=== PATIENT | male | born 2000 | race Caucasian/White ===

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

== ENCOUNTER → 2019-03-20 | Outpatient (CLI) | payer OTHER ==
[2019-03-20 20:38] LABS: BASO # 0.1 10^3/uL (0.0-0.2); BASO % 1.8 % (0.0-1.0); EOS # 0.1 10^3/uL (0.0-0.5); EOS % 2.9 % (0.0-3.0); HEMATOCRIT 35.4 % (42.0-52.0); HEMOGLOBIN 10.8 g/dl (13.5-17.5); LYMPH # 1.8 10^3/uL (1.5-5.0); LYMPH % 39.5 % (24.0-44.0); MEAN CORPUSCULAR HEMOGLOBIN 25.5 pg (27.0-33.0); MEAN CORPUSCULAR HGB CONC 30.5 g/dl (32.0-36.5); MEAN CORPUSCULAR VOLUME 83.7 fl (80.0-96.0); MONO # 0.4 10^3/uL (0.0-0.8); MONO % 8.4 % (0.0-5.0); NEUTROPHILS # 2.1 10^3/uL (1.5-8.5); NEUTROPHILS % 47.2 % (36.0-66.0); PLATELET COUNT, AUTOMATED 257 10^3/uL (150-450); RED BLOOD COUNT 4.23 10^6/uL (4.30-6.10); WHITE BLOOD COUNT 4.5 10^3/uL (4.0-10.0)
[2019-03-20 20:45] LABS: ALBUMIN 4.4 GM/DL (3.2-5.2); ALT/SGPT 22 U/L (12-78); BILIRUBIN,DIRECT 0.3 MG/DL (0.0-0.2); BILIRUBIN,TOTAL 1.3 MG/DL (0.2-1.0); C REACTIVE PROTEIN QUANTITATIV < 0.30 MG/DL (0.00-0.30); TOTAL PROTEIN 8.1 GM/DL (6.4-8.2)
[2019-03-20 21:04] LABS: ERYTHROCYTE SEDIMENTATION RATE 22 mm/hr (0-15)
[2019-03-28 00:07] LABS: ADALIMUMAB LEVEL 4.8 ug/mL (.); ANTI-ADALIMUMAB ABY <25 ng/mL (.)
== END ==
LOC: M LRY 14:51
PROVIDERS: ATTEND Internal Medicine Gastroenterology
DX: K50.90 Crohn's disease, unspecified, without complications (principal)

== ENCOUNTER → 2019-05-10 | Outpatient (CLI) | payer OTHER ==
[~2019-05-10] MED LIST changes: +OMEP-172 PO; -OMEP20CA4 PO
[2019-05-10 15:17] LABS: BASO # 0.1 10^3/uL (0.0-0.2); BASO % 1.4 % (0.0-1.0); EOS # 0.1 10^3/uL (0.0-0.5); EOS % 2.2 % (0.0-3.0); HEMATOCRIT 38.2 % (42.0-52.0); HEMOGLOBIN 11.5 g/dl (13.5-17.5); LYMPH # 2.1 10^3/uL (1.5-5.0); LYMPH % 42.6 % (24.0-44.0); MEAN CORPUSCULAR HEMOGLOBIN 25.2 pg (27.0-33.0); MEAN CORPUSCULAR HGB CONC 30.1 g/dl (32.0-36.5); MEAN CORPUSCULAR VOLUME 83.6 fl (80.0-96.0); MONO # 0.5 10^3/uL (0.0-0.8); MONO % 10.1 % (0.0-5.0); NEUTROPHILS # 2.2 10^3/uL (1.5-8.5); NEUTROPHILS % 43.5 % (36.0-66.0); PLATELET COUNT, AUTOMATED 237 10^3/uL (150-450); RED BLOOD COUNT 4.57 10^6/uL (4.30-6.10)
[2019-05-10 15:40] LABS: ERYTHROCYTE SEDIMENTATION RATE 11 mm/hr (0-15)
[2019-05-10 19:10] LABS: ALT/SGPT 24 U/L (12-78); BLOOD UREA NITROGEN 16 MG/DL (7-18); CREATININE FOR GFR 1.02 MG/DL (0.70-1.30)
[2019-05-10 19:11] LABS: ALBUMIN 4.6 GM/DL (3.2-5.2); BILIRUBIN,DIRECT 0.3 MG/DL (0.0-0.2); BILIRUBIN,TOTAL 1.5 MG/DL (0.2-1.0); C REACTIVE PROTEIN QUANTITATIV < 0.30 MG/DL (0.00-0.30); IRON (FE) 29 UG/DL (65-175); PERCENT SATURATION 6.7 % (19.7-50.0); TOTAL IRON BINDING CAPACITY 432 UG/DL (250-450); TOTAL PROTEIN 8.1 GM/DL (6.4-8.2)
[2019-05-10 23:59] LABS: VITAMIN B12 LEVEL 636 PG/ML
== END ==
LOC: M LAB 14:26
PROVIDERS: ATTEND Internal Medicine Gastroenterology
DX: K50.90 Crohn's disease, unspecified, without complications (principal)

== ENCOUNTER → 2019-07-21 | Outpatient (CLI) | payer OTHER ==
[~2019-07-21] MED LIST changes: -MONT10TA2 PO; +MONT10TA4 PO; -OMEP-172 PO; +OMEP1CAP73 PO; +ONDA-83 PO; -ONDA4TAB5 PO
[2019-07-21 08:54] LABS: BASO # 0.1 10^3/uL (0.0-0.2); BASO % 1.2 % (0.0-1.0); EOS # 0.1 10^3/uL (0.0-0.5); EOS % 1.6 % (0.0-3.0); HEMATOCRIT 38.6 % (42.0-52.0); HEMOGLOBIN 12.2 g/dl (13.5-17.5); LYMPH # 2.8 10^3/uL (1.5-5.0); LYMPH % 56.1 % (24.0-44.0); MEAN CORPUSCULAR HEMOGLOBIN 26.8 pg (27.0-33.0); MEAN CORPUSCULAR HGB CONC 31.6 g/dl (32.0-36.5); MEAN CORPUSCULAR VOLUME 84.8 fl (80.0-96.0); MONO # 0.4 10^3/uL (0.0-0.8); MONO % 8.6 % (0.0-5.0); NEUTROPHILS # 1.6 10^3/uL (1.5-8.5); NEUTROPHILS % 32.3 % (36.0-66.0); PLATELET COUNT, AUTOMATED 201 10^3/uL (150-450); RED BLOOD COUNT 4.55 10^6/uL (4.30-6.10)
--- NOTE | 2019-07-21 09:52 | REP ---
Clinical: Epigastric pain. Technique: Real time najera scale and color Doppler ultrasound examination using curved array transducer. Findings: Liver, spleen, and pancreas are normal in contour, size, echogenicity without focal hepatic, splenic, or pancreatic lesion identified. The gallbladder is normal and without gallstones, wall thickening, or pericholecystic fluid. No biliary ductal dilatation is appreciated and the common bile duct measures 3.6 mm diameter. The bilateral kidneys are normal in reniform shape without hydronephrosis. The right kidney appears somewhat malrotated and measures 11.0 x 3.9 x 3.2 cm. The left kidney measures 12.1 x 5.3 x 4.7 cm. Abdominally aorta appears normal. No ascites. Color Doppler interrogation demonstrates normal velocities, wave forms, and flow direction of the portal veins, hepatic veins, splenic vein, and hepatic artery. Main hepatic vein: 18.7 cm/sec Hepatic veins: 14.9 - 19.9 cm/sec Splenic vein: 31.1 cm/sec Hepatic artery: 50.6 cm/sec PSV Impression: Normal complete abdominal ultrasound. The Electronically Signed by Kristian Jensen MD 07/21/2019 09:44 A
[2019-07-21 11:04] LABS: ALBUMIN 4.8 GM/DL (3.2-5.2); ALT/SGPT 22 U/L (12-78); BILIRUBIN,DIRECT 0.3 MG/DL (0.0-0.2); BLOOD UREA NITROGEN 12 MG/DL (7-18); CALCIUM LEVEL 9.8 MG/DL (8.5-10.1); CARBON DIOXIDE LEVEL 26 MEQ/L (21-32); CHLORIDE LEVEL 108 MEQ/L (98-107); CREATININE FOR GFR 0.78 MG/DL (0.70-1.30); FERRITIN 7 NG/ML (26-388); GLUCOSE, FASTING 94 MG/DL (70-100); IRON (FE) 21 UG/DL (65-175); PERCENT SATURATION 4.8 % (19.7-50.0); POTASSIUM SERUM 4.4 MEQ/L (3.5-5.1); SODIUM LEVEL 139 MEQ/L (136-145); TOTAL IRON BINDING CAPACITY 442 UG/DL (250-450); TOTAL PROTEIN 8.3 GM/DL (6.4-8.2)
[2019-07-21 11:41] LABS: VITAMIN B12 LEVEL 759 PG/ML
[2019-07-21 11:43] LABS: FOLATE 10.1 NG/ML
== END ==
LOC: M RAD 07:59
PROVIDERS: ATTEND Internal Medicine Gastroenterology
DX: R10.13 Epigastric pain (principal); R10.84 Generalized abdominal pain

== ENCOUNTER 2019-07-31 12:00 | Day surgery (SDC) | payer OTHER ==
[~2019-07-31] VITALS: Ht 175.3 cm; Wt 43.1 kg
[~2019-07-31 12:00] MED LIST changes: +LIDOCAINE 2% INJ 100 MG/5 ML SDV (FOR ANES.) As Ordered ONE; +NS 1,000 ML IV ONE; +OXYC1TAB23; +propofoL 200 MG/20 ML VIAL As Ordered ONE
[2019-07-31] MEDS ORDERED: fentaNYL 100 MCG/2 ML INJECTION (J3010) As Ordered ONE (12:34)
--- NOTE | 2019-07-31 13:43 | ROOR ---
Patient Name: Lasha Mendoza Procedure Date: 07/31/2019 12:44 PM Date of : 2000 Age: 19 Room: [facility] Gender: Male Note Status: Finalized Procedure: Upper GI endoscopy Indications: Dyspepsia, Crohn's disease, Weight loss Providers: Yan Davis MD Referring MD: Hailey Virgen Md, [place], [facility], Admin. Requesting Provider: Medicines: Monitored Anesthesia Care Complications: No immediate complications. Procedure: Pre-Anesthesia Assessment: - Prior to the procedure, a History and Physical was performed, and patient medications and allergies were reviewed. The patient is competent. The risks and benefits of the procedure and the sedation options and risks were discussed with the patient. All questions were answered and informed consent was obtained. Patient identification and proposed procedure were verified by the physician, the nurse and the anesthesiologist in the procedure room. Mental Status Examination: alert and oriented. Airway Examination: normal oropharyngeal airway and neck mobility. Respiratory Examination: clear to auscultation. CV Examination: normal. Prophylactic Antibiotics: The patient does not require prophylactic antibiotics. Prior Anticoagulants: The patient has taken no previous anticoagulant or antiplatelet agents. ASA Grade Assessment: III - A patient with severe systemic disease. After reviewing the risks and benefits, the patient was deemed in satisfactory condition to undergo the procedure. The anesthesia plan was to use monitored anesthesia care (MAC). Immediately prior to administration of medications, the patient was re-assessed for adequacy to receive sedatives. The heart rate, respiratory rate, oxygen saturations, blood pressure, adequacy of pulmonary ventilation, and response to care were monitored throughout the procedure. The physical status of the patient was re-assessed after the procedure. The Endoscope was introduced through the mouth, and advanced to the second part of duodenum. The upper GI endoscopy was accomplished without difficulty. The patient tolerated the procedure well. Findings: The examined esophagus was normal. The Z-line was regular and was found 38 cm from the incisors. Scattered mild inflammation characterized by erythema and granularity was found in the gastric antrum. Biopsies were taken with a cold forceps for histology. Verification of patient identification for the specimen was done by the physician and nurse using the patient's name, date and medical record number. The duodenal bulb and second portion of the duodenum were normal. Impression: - Normal esophagus. - Z-line regular, 38 cm from the incisors. - Gastritis. Biopsied. - Normal duodenal bulb and second portion of the duodenum. Recommendation: - Patient has a contact number available for emergencies. The signs and symptoms of potential delayed complications were discussed with the patient. Return to normal activities tomorrow. Written discharge instructions were provided to the patient. - Resume previous diet. - Continue present medications. - Await pathology results. - Telephone GI clinic for pathology results in 1 week. - Return to GI clinic in 2 months. - Return to primary care physician. Yan Davis MD Yan Davis MD 07/31/2019 1:42:51 PM Electronically signed by Yan Davis MD Number of Addenda: 0 Note Initiated On: 07/31/2019 12:44 PM Estimated Blood Loss: Estimated blood loss was minimal.
--- NOTE | 2019-07-31 13:45 | ROOR ---
Patient Name: Lasha Mendoza Procedure Date: 07/31/2019 12:45 PM Date of : 2000 Age: 19 Room: [facility] Gender: Male Note Status: Finalized Procedure: Colonoscopy Indications: Disease activity assessment of Crohn's disease of the small bowel and colon, Assess therapeutic response to therapy of Crohn's disease of the small bowel and colon Providers: Yan Davis MD Referring MD: [facility] ALKA Joy [facility], Admin. Requesting Provider: Medicines: Monitored Anesthesia Care Complications: No immediate complications. Procedure: Pre-Anesthesia Assessment: - Prior to the procedure, a History and Physical was performed, and patient medications and allergies were reviewed. The patient is competent. The risks and benefits of the procedure and the sedation options and risks were discussed with the patient. All questions were answered and informed consent was obtained. Patient identification and proposed procedure were verified by the physician, the nurse and the anesthesiologist in the procedure room. Mental Status Examination: alert and oriented. Airway Examination: normal oropharyngeal airway and neck mobility. Respiratory Examination: clear to auscultation. CV Examination: normal. Prophylactic Antibiotics: The patient does not require prophylactic antibiotics. Prior Anticoagulants: The patient has taken no previous anticoagulant or antiplatelet agents. ASA Grade Assessment: III - A patient with severe systemic disease. After reviewing the risks and benefits, the patient was deemed in satisfactory condition to undergo the procedure. The anesthesia plan was to use monitored anesthesia care (MAC). Immediately prior to administration of medications, the patient was re-assessed for adequacy to receive sedatives. The heart rate, respiratory rate, oxygen saturations, blood pressure, adequacy of pulmonary ventilation, and response to care were monitored throughout the procedure. The physical status of the patient was re-assessed after the procedure. The Colonoscope was introduced through the anus and advanced to the terminal ileum, with identification of the appendiceal orifice and IC valve. The colonoscopy was performed without difficulty. The patient tolerated the procedure well. The quality of the bowel preparation was good. The terminal ileum, ileocecal valve, appendiceal orifice, and rectum were photographed. Scope insertion time was 4 minutes. Scope withdrawal time was 8 minutes. The total duration of the procedure was 12 minutes. Findings: The perianal and digital rectal examinations were normal. The terminal ileum appeared normal. Normal mucosa was found in the entire colon. Biopsies for histology were taken with a cold forceps from the right colon and rectosigmoid colon for evaluation of microscopic colitis. Verification of patient identification for the specimen was done by the physician and nurse using the patient's name, date and medical record number. Estimated blood loss was minimal. The entire examined colon appeared normal on direct and retroflexion views. Impression: - The examined portion of the ileum was normal. - Normal mucosa in the entire examined colon. Biopsied. - The entire examined colon is normal on direct and retroflexion views. Recommendation: - Patient has a contact number available for emergencies. The signs and symptoms of potential delayed complications were discussed with the patient. Return to normal activities tomorrow. Written discharge instructions were provided to the patient. - Resume previous diet. - Continue present medications. - Await pathology results. - Repeat colonoscopy in 10 years to assess disease activity. - Return to GI clinic in 2 months. - Return to primary care physician. Yan Davis MD Yan Davis MD 07/31/2019 1:45:21 PM Electronically signed by Yan Davis MD Number of Addenda: 0 Note Initiated On: 07/31/2019 12:45 PM Estimated Blood Loss: Estimated blood loss was minimal.
[2019-07-31 13:59] VITALS: BP 98/59
== END 2019-07-31 14:01 | disposition home or self-care (01) ==
LOC: M OPP 12:00
PROVIDERS: ATTEND Internal Medicine Gastroenterology
DX: K50.90 Crohn's disease, unspecified, without complications (principal); Z09 Encounter for follow-up examination after completed treatment for conditions other than malignant neoplasm; K29.70 Gastritis, unspecified, without bleeding; R10.13 Epigastric pain; R63.4 Abnormal weight loss; Z79.891 Long term (current) use of opiate analgesic; Z79.899 Other long term (current) drug therapy
CPT/HCPCS: 43239; 45380; 88305; J3010

== ENCOUNTER → 2019-11-24 | Outpatient (CLI) | payer OTHER ==
[~2019-11-24] MED LIST changes: -LIDOCAINE 2% INJ 100 MG/5 ML SDV (FOR ANES.) As Ordered ONE; -NS 1,000 ML IV ONE; -propofoL 200 MG/20 ML VIAL As Ordered ONE
[2019-11-24 13:34] LABS: BASO # 0.1 10^3/uL (0.0-0.2); BASO % 1.7 % (0.0-1.0); EOS # 0.1 10^3/uL (0.0-0.5); EOS % 2.5 % (0.0-3.0); HEMATOCRIT 39.7 % (42.0-52.0); HEMOGLOBIN 12.9 g/dl (13.5-17.5); LYMPH # 1.8 10^3/uL (1.5-5.0); LYMPH % 50.4 % (24.0-44.0); MEAN CORPUSCULAR HEMOGLOBIN 29.5 pg (27.0-33.0); MEAN CORPUSCULAR HGB CONC 32.5 g/dl (32.0-36.5); MEAN CORPUSCULAR VOLUME 90.8 fl (80.0-96.0); MONO # 0.4 10^3/uL (0.0-0.8); MONO % 9.8 % (0.0-5.0); NEUTROPHILS # 1.3 10^3/uL (1.5-8.5); NEUTROPHILS % 35.3 % (36.0-66.0); PLATELET COUNT, AUTOMATED 194 10^3/uL (150-450); RED BLOOD COUNT 4.37 10^6/uL (4.30-6.10); WHITE BLOOD COUNT 3.6 10^3/uL (4.0-10.0)
[2019-11-24 13:56] LABS: C REACTIVE PROTEIN QUANTITATIV < 0.30 MG/DL (0.00-0.30); IRON (FE) 71 UG/DL (65-175); PERCENT SATURATION 18.6 % (19.7-50.0); TOTAL IRON BINDING CAPACITY 382 UG/DL (250-450)
[2019-11-24 14:11] LABS: ERYTHROCYTE SEDIMENTATION RATE 9 mm/hr (0-15)
[2019-11-24 14:20] LABS: HEPATITIS B SURFACE ANTIBODY NEGATIVE (POSITIVE)
[2019-11-24 14:21] LABS: FOLATE 10.4 NG/ML (>5.4); VITAMIN B12 LEVEL 708 PG/ML (247-911)
[2019-12-02 03:06] LABS: ADALIMUMAB LEVEL 11 ug/mL (.); ANTI-ADALIMUMAB ABY <25 ng/mL (.); HEPATITIS B CORE ANTIBODY IGG Negative (Negative)
== END ==
LOC: M LAB 12:11
PROVIDERS: ATTEND Internal Medicine Gastroenterology
DX: K50.90 Crohn's disease, unspecified, without complications (principal); R19.7 Diarrhea, unspecified; R62.7 Adult failure to thrive

== ENCOUNTER → 2020-02-02 | Outpatient (CLI) | payer OTHER ==
[~2020-02-02] MED LIST changes: +PANT40TA29 PO; -PANT40TA3 PO
[2020-02-02 12:15] LABS: BASO # 0.1 10^3/uL (0.0-0.2); BASO % 1.1 % (0.0-1.0); EOS # 0.1 10^3/uL (0.0-0.5); EOS % 1.1 % (0.0-3.0); HEMATOCRIT 42.4 % (42.0-52.0); HEMOGLOBIN 14.2 g/dl (13.5-17.5); LYMPH # 2.1 10^3/uL (1.5-5.0); LYMPH % 46.8 % (24.0-44.0); MEAN CORPUSCULAR HGB CONC 33.5 g/dl (32.0-36.5); MEAN CORPUSCULAR VOLUME 89.6 fl (80.0-96.0); MONO # 0.4 10^3/uL (0.0-0.8); MONO % 8.8 % (0.0-5.0); NEUTROPHILS # 1.9 10^3/uL (1.5-8.5); NEUTROPHILS % 42.2 % (36.0-66.0); PLATELET COUNT, AUTOMATED 221 10^3/uL (150-450); RED BLOOD COUNT 4.73 10^6/uL (4.30-6.10); WHITE BLOOD COUNT 4.4 10^3/uL (4.0-10.0)
[2020-02-02 12:21] LABS: INR 1.12; PROTHROMBIN TIME 14.6 SECONDS (11.8-14.0)
[2020-02-02 12:22] LABS: PARTIAL THROMBOPLASTIN TIME 30.5 SECONDS (25.0-38.4)
[2020-02-02 12:31] LABS: ALBUMIN 4.6 GM/DL (3.2-5.2); ALT/SGPT 33 U/L (12-78); BILIRUBIN,DIRECT 0.2 MG/DL (0.0-0.2); BILIRUBIN,TOTAL 3.2 MG/DL (0.2-1.0); BLOOD UREA NITROGEN 15 MG/DL (7-18); CALCIUM LEVEL 9.6 MG/DL (8.5-10.1); CARBON DIOXIDE LEVEL 28 MEQ/L (21-32); CHLORIDE LEVEL 106 MEQ/L (98-107); CREATININE FOR GFR 0.97 MG/DL (0.70-1.30); GLUCOSE, FASTING 108 MG/DL (70-100); POTASSIUM SERUM 3.9 MEQ/L (3.5-5.1); SODIUM LEVEL 141 MEQ/L (136-145); TOTAL PROTEIN 7.8 GM/DL (6.4-8.2)
== END ==
LOC: M LAB 10:27
PROVIDERS: ATTEND Internal Medicine Gastroenterology
DX: R62.7 Adult failure to thrive (principal); K50.90 Crohn's disease, unspecified, without complications

== ENCOUNTER 2020-04-19 18:30 | Emergency (ER) | payer OTHER ==
[~2020-04-19] VITALS: Ht 175.3 cm; Wt 43.8 kg
[2020-04-19 20:26] LABS: BASO # 0.1 10^3/uL (0.0-0.2); BASO % 1.5 % (0.0-1.0); EOS # 0.2 10^3/uL (0.0-0.5); EOS % 3.7 % (0.0-3.0); HEMATOCRIT 41.1 % (42.0-52.0); HEMOGLOBIN 13.6 g/dl (13.5-17.5); LYMPH # 1.8 10^3/uL (1.5-5.0); LYMPH % 38.3 % (24.0-44.0); MEAN CORPUSCULAR HGB CONC 33.1 g/dl (32.0-36.5); MEAN CORPUSCULAR VOLUME 90.7 fl (80.0-96.0); MONO # 0.4 10^3/uL (0.0-0.8); MONO % 7.6 % (0.0-5.0); NEUTROPHILS # 2.2 10^3/uL (1.5-8.5); NEUTROPHILS % 48.7 % (36.0-66.0); PLATELET COUNT, AUTOMATED 220 10^3/uL (150-450); RED BLOOD COUNT 4.53 10^6/uL (4.30-6.10); WHITE BLOOD COUNT 4.6 10^3/uL (4.0-10.0)
[2020-04-19] MEDS ORDERED: MORPHINE 2 MG/ML 1ML VIAL (J2270) IV ONE ×2 (20:30→23:00)
[2020-04-19] MEDS ORDERED: ONDANSETRON 4MG/2ML VIAL IV ONE (20:30)
[2020-04-19 20:49] LABS: ALBUMIN 4.5 GM/DL (3.2-5.2); ALT/SGPT 29 U/L (12-78); BILIRUBIN,DIRECT 0.4 MG/DL (0.0-0.2); BILIRUBIN,TOTAL 1.8 MG/DL (0.2-1.0); BLOOD UREA NITROGEN 14 MG/DL (7-18); CALCIUM LEVEL 9.1 MG/DL (8.5-10.1); CARBON DIOXIDE LEVEL 27 MEQ/L (21-32); CHLORIDE LEVEL 107 MEQ/L (98-107); CREATININE FOR GFR 0.94 MG/DL (0.70-1.30); GLOMERULAR FILTRATION RATE > 60.0 (>60); GLUCOSE, FASTING 87 MG/DL (70-100); LIPASE 53 U/L (73-393); POTASSIUM SERUM 3.9 MEQ/L (3.5-5.1); SODIUM LEVEL 139 MEQ/L (136-145)
[2020-04-19 21:03] LABS: ERYTHROCYTE SEDIMENTATION RATE 6 mm/hr (0-15)
--- NOTE | 2020-04-19 22:07 | REPVR ---
PROCEDURE INFORMATION: Exam: XR Abdomen, 1 View Exam date and time: 04/19/2020 9:37 PM Age: 20 years old Clinical indication: Abdominal pain, h/o Crohn's disease, R/O constipation TECHNIQUE: Imaging protocol: XR of the abdomen. Views: Frontal supine view of the abdomen. 1 View. COMPARISON: CT ABD PELVIS WITH CONTRAST 08/01/2018 1:20 AM FINDINGS: Gastrointestinal tract: There is a mild amount of stool in the colon. No dilated loops of bowel are noted. Bones/joints: Unremarkable. IMPRESSION: Mild amount of stool in the colon. No radiographic evidence for a bowel obstruction. Electronically signed by: Mina Kent On 04/19/2020 22:06:56 PM
[2020-04-20] MEDS ORDERED: PRED20TA PO (00:48)
[2020-04-20] MEDS ORDERED: COLA100C5 PO (00:48)
[2020-04-20] MEDS ORDERED: OMEP40CA97 PO (00:48)
[2020-04-20] MEDS ORDERED: NORC1TAB7 PO (00:50)
[2020-04-20 01:40] VITALS: BP 128/72
[2020-04-20] MEDS ORDERED: NORCO, ANEXSIA 5/325MG TABLET (HYDROcodone/ACETAMINOPHEN) PO ONE (01:45)
== END 2020-04-20 01:42 | disposition home or self-care (01) ==
LOC: M ED 18:30
DX: K50.918 Crohn's disease, unspecified, with other complication (principal); J45.909 Unspecified asthma, uncomplicated; F41.9 Anxiety disorder, unspecified; F33.9 Major depressive disorder, recurrent, unspecified; K21.9 Gastro-esophageal reflux disease without esophagitis; Z86.19 Personal history of other infectious and parasitic diseases; Z87.440 Personal history of urinary (tract) infections; Z98.890 Other specified postprocedural states
CPT/HCPCS: 74018; 80048; 80076; 81001; 83605; 83690; 85025; 85652; 86140; 96374; 96375; 96376; 99283; J2270; J2405

== ENCOUNTER → 2020-06-10 | Outpatient (CLI) | payer OTHER, SELFPAY ==
[~2020-06-10] MED LIST changes: +COLA100C5 PO; +MONT10TA10 PO; -MONT10TA4 PO; +NORC1TAB7 PO; +OMEP40CA97 PO
[2020-06-10 13:20] LABS: BASO # 0.1 10^3/uL (0.0-0.2); BASO % 1.5 % (0.0-1.0); EOS # 0.1 10^3/uL (0.0-0.5); EOS % 2.9 % (0.0-3.0); HEMOGLOBIN 14.4 g/dl (13.5-17.5); LYMPH # 1.8 10^3/uL (1.5-5.0); LYMPH % 37.6 % (24.0-44.0); MEAN CORPUSCULAR HEMOGLOBIN 31.4 pg (27.0-33.0); MEAN CORPUSCULAR HGB CONC 32.7 g/dl (32.0-36.5); MEAN CORPUSCULAR VOLUME 96.1 fl (80.0-96.0); MONO # 0.3 10^3/uL (0.0-0.8); MONO % 6.7 % (0.0-5.0); NEUTROPHILS # 2.5 10^3/uL (1.5-8.5); NEUTROPHILS % 51.1 % (36.0-66.0); PLATELET COUNT, AUTOMATED 233 10^3/uL (150-450); RED BLOOD COUNT 4.58 10^6/uL (4.30-6.10); WHITE BLOOD COUNT 4.8 10^3/uL (4.0-10.0)
[2020-06-10 13:54] LABS: ALBUMIN 4.5 GM/DL (3.2-5.2); ALT/SGPT 30 U/L (12-78); BILIRUBIN,DIRECT 0.4 MG/DL (0.0-0.2); BLOOD UREA NITROGEN 17 MG/DL (7-18); C REACTIVE PROTEIN QUANTITATIV < 0.30 MG/DL (0.00-0.30); CREATININE FOR GFR 0.85 MG/DL (0.70-1.30); GLOMERULAR FILTRATION RATE > 60.0 (>60); RHEUMATOID FACTOR QUANT < 10.0 IU/ML (<15.0); TOTAL PROTEIN 7.7 GM/DL (6.4-8.2)
[2020-06-10 14:03] LABS: ERYTHROCYTE SEDIMENTATION RATE 4 mm/hr (0-15)
[2020-06-17 12:07] LABS: ADALIMUMAB LEVEL 11 ug/mL (.); ANTI DS-DNA AB Negative (Negative); ANTI-ADALIMUMAB ABY <25 ng/mL (.); ANTINUCLEAR ANTIBODIES DIRECT Negative (Negative)
== END ==
LOC: M LAB 12:16
PROVIDERS: ATTEND Internal Medicine Gastroenterology
DX: R62.7 Adult failure to thrive (principal)

== ENCOUNTER → 2020-08-09 | Outpatient (CLI) | payer OTHER ==
[2020-08-09 12:02] LABS: BASO # 0.1 10^3/uL (0.0-0.2); BASO % 1.5 % (0.0-1.0); EOS # 0.1 10^3/uL (0.0-0.5); EOS % 2.2 % (0.0-3.0); HEMATOCRIT 40.8 % (42.0-52.0); HEMOGLOBIN 13.9 g/dl (13.5-17.5); LYMPH # 2.3 10^3/uL (1.5-5.0); LYMPH % 41.8 % (24.0-44.0); MEAN CORPUSCULAR HEMOGLOBIN 31.8 pg (27.0-33.0); MEAN CORPUSCULAR HGB CONC 34.1 g/dl (32.0-36.5); MEAN CORPUSCULAR VOLUME 93.4 fl (80.0-96.0); MONO # 0.5 10^3/uL (0.0-0.8); MONO % 9.3 % (2.0-8.0); NEUTROPHILS # 2.4 10^3/uL (1.5-8.5); PLATELET COUNT, AUTOMATED 198 10^3/uL (150-450); RED BLOOD COUNT 4.37 10^6/uL (4.30-6.10); WHITE BLOOD COUNT 5.4 10^3/uL (4.0-10.0)
[2020-08-09 12:40] LABS: ALBUMIN 4.6 GM/DL (3.2-5.2); ALT/SGPT 21 U/L (12-78); BILIRUBIN,TOTAL 3.4 MG/DL (0.2-1.0); BLOOD UREA NITROGEN 15 MG/DL (7-18); CALCIUM LEVEL 9.8 MG/DL (8.5-10.1); CARBON DIOXIDE LEVEL 28 MEQ/L (21-32); CHLORIDE LEVEL 107 MEQ/L (98-107); CREATININE FOR GFR 0.86 MG/DL (0.70-1.30); FERRITIN 26 NG/ML (26-388); FREE T4 1.06 NG/DL (0.76-1.46); GLOMERULAR FILTRATION RATE > 60.0 (>60); GLUCOSE, FASTING 81 MG/DL (70-100); IRON (FE) 111 UG/DL (65-175); PERCENT SATURATION 32.4 % (19.7-50.0); POTASSIUM SERUM 4.3 MEQ/L (3.5-5.1); SODIUM LEVEL 140 MEQ/L (136-145); TOTAL IRON BINDING CAPACITY 343 UG/DL (250-450); TOTAL PROTEIN 7.4 GM/DL (6.4-8.2)
[2020-08-09 17:47] LABS: FOLATE 4.8 NG/ML (>5.4); TOTAL 25(OH) VITAMIN D 9.6 NG/ML (30.0-100.0); VITAMIN B12 LEVEL 712 PG/ML (247-911)
== END ==
LOC: M LAB 11:02
PROVIDERS: ATTEND Family Medicine
DX: R63.6 Underweight (principal); K50.119 Crohn's disease of large intestine with unspecified complications

== ENCOUNTER → 2020-08-16 | Outpatient (CLI) | payer OTHER ==
--- NOTE | 2020-08-22 01:04 | ECWPNPC ---
PATIENT NAME: NYASIA SEGAL : 2000 GENDER: MALE VISIT DATE: 08/16/2020 DISCHARGE DATE: 08/16/20 1156 VISIT LOCKED DATE TIME: PHYSICIAN: PEREZ ROJAS PHYSICIAN PAGER NO: ACTIVE RESOURCE: PEREZ ROJAS REASON FOR APPOINTMENT 1. ABDOMINAL PAIN HISTORY OF PRESENT ILLNESS DEPRESSION SCREENING: PHQ-2 (2015 EDITION) LITTLE INTEREST OR PLEASURE IN DOING THINGS?DECLINED TO SPECIFY FEELING DOWN, DEPRESSED, OR HOPELESS?DECLINED TO SPECIFY TOTAL SCORE0 GENERAL: 20-YEAR-OLD MALE BEING REFERRED BY PRIMARY CARE TO EVALUATE ABDOMINAL PAIN ASSOCIATED WITH CROHN'S DISEASE. PATIENT WAS DIAGNOSED WITH CROHN'S DISEASE WHEN HE WAS 17 YEARS OLD. CURRENTLY RECEIVING HUMIRA THERAPY. STATES THAT HE HAS A CONSTANT ACHE IN HIS STOMACH. REPORTS OCCASIONAL SEVERE FLAREUP IN PAIN. CURRENTLY ON GABAPENTIN 300 MG 3 TIMES A DAY. STATES HE CONTINUES WITH CONSTANT DULL PAIN AND REALLY DOESN'T LIKE BURNING SENSATION IN HIS SKIN THAT HE FEELS GABAPENTIN CAUSES. PATIENT IS CACHECTIC IN APPEARANCE. 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 PATIENT STATES THAT SOMETIMES WHEN HE EATS IT MAKES ABDOMINAL PAIN WORSE. IT'S UNPREDICTABLE AND HE IS AFRAID OF SEVERE ABDOMINAL PAIN. STATES BOWEL MOVEMENTS ARE NORMAL AND URINATION IS NORMAL FOR HIM. DISCUSSED MEDICATION OPTIONS.-. FALL RISK SCREENING: SCREENING : NO FALLS REPORTED IN THE LAST YEAR. PAIN SCREENING: PATIENT HAS A COMPLAINT OF ACUTE OR CHRONIC PAIN :YES LOCATION OF PAIN:ABDOMEN INTENSITY OF PAIN (SCALE OF 1 TO 10):7 WHAT DOES YOUR PAIN FEEL LIKE:ACHING DURATION:INTERMITTENT PAIN IS INCREASED BY:OTHERS " EATING SOMETHING THAT DOES AGREE WITH ME" PAIN IS DECREASED BY:OTHERS " NOT EATING MUCH " NURSING NOTE: -. PAIN CENTER INTAKE QUESTIONS: DO YOU HAVE A HISTORY OF MRSA? :NO DO YOU TAKE A BLOOD THINNERS? :NO DO YOU HAVE ANY BLEEDING DISORDERS? :NO ANY NEW NUMBNESS OR WEAKNESS IN YOUR LEGS OR ARMS? :NO ANY PACEMAKER,DEFIBRILLATOR, OR DORSAL COLUMN STIMULATOR? :NO DO YOU HAVE ANY RASHES OR OPEN SORES? :NO ARE YOU ALLERGIC TO IV DYE? :NO ARE YOU DIABETIC? :NO ANY NEW PROBLEMS WITH YOUR MEDICATIONS? :NO HAVE YOU RECEIVED A VACCINE IN THE PAST 30 DAYS? :NO DO YOU PLAN TO RECEIVE A VACCINE IN THE NEXT 21 DAYS? :NO DO YOU NEED ANY PRESCRIPTION? :NO DO YOU TAKE ANY IMMUNOSUPPRESSIVE MEDICATIONS? :NO DO YOU HAVE ANY KIDNEY OR LIVER DISEASE? :NO IS THERE A CHANCE YOU COULD BE ? :NO ARE YOU BREAST FEEDING? 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 SEASONAL ALLERGIC RHINITIS LEVOSCOLIOSIS ALLERGIES SEASONAL: HEADACHE SURGICAL HISTORY ADENOIDS & TONSILECTOMY FAMILY HISTORY FATHER: ALIVE, DIAGNOSED WITH HYPERTENSION MOTHER: ALIVE, DIABETES, HYPERTENSION, UNSPECIFIED CEREBRAL ARTERY OCCLUSION WITH CEREBRAL INFARCTION, UNSPECIFIED HEART DISEASE SIBLINGS: ALIVE MATERNAL GRAND FATHER: COLON, HYPERTENSION, OTHER MALIGNANT NEOPLASM OF UNSPECIFIED SITE MATERNAL GRAND MOTHER: BREAST, HYPERTENSION, UNSPECIFIED HEART DISEASE, OTHER MALIGNANT NEOPLASM OF UNSPECIFIED SITE PATERNAL GRAND FATHER: HYPERTENSION PATERNAL GRAND MOTHER: HYPERTENSION 1 BROTHER(S) , 1 SISTER(S) - HEALTHY. SOCIAL HISTORY GENERAL: TOBACCO USE ARE YOU A:NONSMOKER LATEX QUESTIONNAIRE LATEX ALLERGY : HAVE YOU EVER DEVELOPED ANY TYPE OF REACTION AFTER HANDLING LATEX PRODUCTS SUCH RUBBER GLOVES, CONDOMS, DIAPHRAGMS, BALLOONS, SOCKS, OR UNDERWEAR?NO LATEX ALLERGY : HAVE YOU EVER DEVELOPED ANY TYPE OF REACTION DURING OR AFTER DENTAL APPOINTMENT, VAGINAL/RECTAL EXAMINATION, SURGICAL PROCEDURE, OR ANY OTHER EXPOSURE?NO LATEX RISK : HAVE YOU EVER HAD ANY DIFFICULTY BREATHING OR HIVES AFTER EATING OR HANDLING ANY FRUITS, OR VEGETABLES; SUCH KIWI, BANANAS, STONE FRUITS, OR CHESTNUTSNO LATEX RISK : DO YOU HAVE A PREVIOUS PERSONAL HISTORY OF MORE THAN NINE SURGERIES, SPINA BIFIDA, OR REPEATED CATHERIZATIONS? NO LATEX RISK : ARE YOU FREQUENTLY EXPOSED TO LATEX PRODUCTS IN YOUR OCCUPATION?NO DATE ASKED : 08/16/2020 ALCOHOL USE: YES VEERY RARELY. ALCOHOL SCREENING DID YOU HAVE A DRINK CONTAINING ALCOHOL IN THE PAST YEAR?YES HOW OFTEN DID YOU HAVE SIX OR MORE DRINKS ON ONE OCCASION IN THE PAST YEAR?NEVER (0 POINTS) HOW MANY DRINKS DID YOU HAVE ON A TYPICAL DAY WHEN YOU WERE DRINKING IN THE PAST YEAR?1 OR 2 (0 POINTS) HOW OFTEN DID YOU HAVE A DRINK CONTAINING ALCOHOL IN THE PAST YEAR?MONTHLY OR LESS (1 POINT) POINTS1 INTERPRETATIONNEGATIVE RECREATIONAL DRUG USE DRUG USE?NO CAFFEINE CAFFEINE USE?YES HOW OFTEN AND HOW MUCH? ENERGY DRINK ON OCCASSION SEXUAL HX HAD SEX IN THE LAST 12 MONTHS (VAGINAL, ORAL, OR ANAL)?NO HIV / HEP-C SCREENING HIV TEST OFFERED TO PATIENT:YES DATE OFFERED:08/06/2020 TEST ACCEPTED:NO HEP-C TEST OFFERED TO PATIENT:NO REASON:PATIENT DECLINED BROCHURE PROVIDED TO PATIENTYES MANDAEN NO BUDDHIST BELIEFS THAT WOULD IMPACT HEALTH CARE. LANGUAGE FAROESE. EDUCATION HIGHSCHOOL. LEARNING BARRIERS / SPECIAL NEEDS CHANGE FROM LAST VISIT?NO BARRIERS TO LEARNING?NO HEARING IMPAIRED?NO VISION IMPAIRED?YES :CORRECTIVE LENSES COGNITIVELY IMPAIRED?NO READINESS TO LEARN?YES LEARNING PREFERENCES?NO LEARNING CAPABILITIES PRESENT?YES EMOTIONAL BARRIERS?NO SPECIAL DEVICES?NO RESEARCH STUDY ASSISTANT NEEDED?NO DOMESTIC VIOLENCE NONE. OCCUPATION: UNEMPLOYED. DIET: REGULAR. EXERCISE: DAILY. MARITAL STATUS: SINGLE. OTHERS AT HOME: MOTHER, SIBLING. HOUSING: PARENTS HOME. HOSPITALIZATION/MAJOR DIAGNOSTIC PROCEDURE C DIFF 03/20/18 CROHN'S FLARE AND C- DIFF 07/2018 C-DIFF STOOL TRANSPLANT 07/2017 C-DIFF STOOL TRANSPLANT 07/31/18-08/05/18 [facility] 08/24/18-08/29/18 REVIEW OF SYSTEMS FOLLOW-UP ROS: CARDIOLOGY: NO CHEST PAIN, PALPITATIONS, ORTHOPNEA/PND . GI/ STATES NORMAL URINATION AND NORMAL BOWEL MOVEMENTS . NO NEUROLOGY:, NEGATIVE FOR, HEADACHES, NEW/RECENT LOSS OF COORDINATION, NEW/RECENT MOTOR/SENSORY LOSSES . NO PULMONOLOGY:, NEGATIVE FOR COUGH, CHANGE IN DYSPNEA, PLEURITIC CHEST PAIN . VITAL SIGNS WT 97.8 LBS, HT 69.5 IN, BMI 14.23 INDEX, BP 120/79 MM HG, HR 126 /MIN, RR 16 /MIN, TEMP 99.4 F, OXYGEN SAT % 98%, SAFE IN ENV? (Y/N) YES, NA INITIALS OR 11:21T.SARA STEPHENS. EXAMINATION GENERAL EXAMINATION: GENERALNO ACUTE DISTRESS, CACHECTIC APPEARANCE. PSYCHAPPROPRIATE MOOD AND AFFECT . NECK:NO LYMPHADENOPATHY, SUPPLE, PROMINENT THYROID NOTED. LUNGS:CLEAR TO AUSCULTATION BILATERALLY, NO WHEEZES, RHONCHI, RALES. HEART:SLIGHTLY TACHYCARDIC AT 120. REGULAR RHYTHM . ABDOMEN:PATIENT REPORTS MILD TENDERNESS . ASSESSMENTS OTHER CHRONIC PAIN - G89.29 (PRIMARY) GENERALIZED ABDOMINAL PAIN - R10.84 TREATMENT OTHER CHRONIC PAIN START AMITRIPTYLINE HCL TABLET, 25 MG, 1 TABLET AT BEDTIME, ORALLY, ONCE A DAY, 30 DAY(S), 30, REFILLS 2 NOTES: PRINTED NEW MEDICATION INFROMATION FOR PATIENT JOSHUA KAT . PROCEDURE CODES FA211 ESTABILISHED PATIENT [facility] CHARGE DISPOSITION & COMMUNICATION FOLLOW UP 3 MONTHS (REASON: MED MGMNT/ABDOMINAL PAIN) ELECTRONICALLY SIGNED BY USHA ZAVALA ON 08/21/2020 AT 01:45 PM EDT DISCLAIMER : THIS IS A VISIT SUMMARY EXTRACTED FROM THE [employer] CHART. IT IS NOT A COPY OF THE [employer] PROGRESS NOTE. [id number]
== END ==
LOC: M PAIN 11:15
PROVIDERS: ATTEND Nurse Practitioner Family
DX: R10.84 Generalized abdominal pain (principal); G89.29 Other chronic pain; J45.20 Mild intermittent asthma, uncomplicated; Z79.899 Other long term (current) drug therapy

== ENCOUNTER 2020-09-04 23:53 | Emergency (ER) | payer OTHER ==
[~2020-09-04] VITALS: Ht 175.3 cm; Wt 49.0 kg
[2020-09-04 23:54] VITALS: BP 133/87
[2020-09-05] MEDS ORDERED: HUMI40KI SC (00:17)
[2020-09-05] MEDS ORDERED: AMIT25TA17 PO (00:17)
[2020-09-05] MEDS ORDERED: FOLI400T13 PO (00:17)
[2020-09-05] MEDS ORDERED: ZOLO50TA PO (00:17)
== END 2020-09-05 03:14 | disposition left against medical advice (07) ==
LOC: M ED 23:53
DX: Z53.21 Procedure and treatment not carried out due to patient leaving prior to being seen by health care provider (principal)

== ENCOUNTER → 2020-11-26 | Outpatient (CLI) | payer OTHER ==
[~2020-11-26] MED LIST changes: +AMIT25TA17 PO; +FOLI400T13 PO; +HUMI40KI SC; +OMEP40CA4 PO; -OMEP40CA97 PO; +ZOLO50TA PO
--- NOTE | 2020-11-28 00:58 | ECWPNPC ---
PATIENT NAME: NYASIA SEGAL : 2000 GENDER: MALE VISIT DATE: 11/26/2020 DISCHARGE DATE: 11/26/20 1515 VISIT LOCKED DATE TIME: PHYSICIAN: PEREZ ROJAS PHYSICIAN PAGER NO: ACTIVE RESOURCE: PEREZ ROJAS REASON FOR APPOINTMENT 1. MED MGMNT/ABDOMINAL PAIN HISTORY OF PRESENT ILLNESS GENERAL: NYASIA IS BEING SEEN FOR FOLLOW UP AFTER INITIAL CONSULT FOR ABDOMINAL PAIN AND BURNING WITH A HISTORY OF ADULT ONSET FAILURE TO THRIVE SYNDROME. I STARTED HIM ON AMITRIPTYLINE 25 MG AT BEDTIME 3 MONTHS AGO. PATIENT REPORTS SIGNIFICANT REDUCTION IN BURNING PAIN. STATES HE IS GAINING WEIGHT. OUR RECORDS SHOW THAT HE HAS GAINED APPROXIMATELY 5 POUNDS SINCE HE WAS LAST SEEN HERE 3 MONTHS AGO. OVERALL HAPPY WITH AMITRIPTYLINE TO TREAT HIS CHRONIC PAIN. -. FALL RISK SCREENING: SCREENING : NO FALLS REPORTED IN THE LAST YEAR. PAIN SCREENING: PATIENT HAS A COMPLAINT OF ACUTE OR CHRONIC PAIN :YES LOCATION OF PAIN:ABDOMEN INTENSITY OF PAIN (SCALE OF 1 TO 10):6 WHAT DOES YOUR PAIN FEEL LIKE:ACHING DURATION:INTERMITTENT PAIN IS INCREASED BY:OTHERS DEPENDING WHAT HE EAT PAIN IS DECREASED BY:USE OF PAIN MEDICATIONS NURSING NOTE: -. PAIN CENTER INTAKE QUESTIONS: DO YOU HAVE A HISTORY OF MRSA? :NO DO YOU TAKE A BLOOD THINNERS? :NO DO YOU HAVE ANY BLEEDING DISORDERS? :NO ANY NEW NUMBNESS OR WEAKNESS IN YOUR LEGS OR ARMS? :NO ANY PACEMAKER,DEFIBRILLATOR, OR DORSAL COLUMN STIMULATOR? :NO DO YOU HAVE ANY RASHES OR OPEN SORES? :NO ARE YOU ALLERGIC TO IV DYE? :NO ARE YOU DIABETIC? :NO ANY NEW PROBLEMS WITH YOUR MEDICATIONS? :NO HAVE YOU RECEIVED A VACCINE IN THE PAST 30 DAYS? :NO DO YOU PLAN TO RECEIVE A VACCINE IN THE NEXT 21 DAYS? :NO DO YOU NEED ANY PRESCRIPTION? :YES AMITRIPTYLINE HCL 25 MG DO YOU TAKE ANY IMMUNOSUPPRESSIVE MEDICATIONS? :NO DO YOU HAVE ANY KIDNEY OR LIVER DISEASE? :NO IS THERE A CHANCE YOU COULD BE ? :NO ARE YOU BREAST FEEDING? 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 SEASONAL ALLERGIC RHINITIS LEVOSCOLIOSIS ALLERGIES SEASONAL: HEADACHE SOCIAL HISTORY GENERAL: TOBACCO USE ARE YOU A:NONSMOKER LATEX QUESTIONNAIRE LATEX ALLERGY : HAVE YOU EVER DEVELOPED ANY TYPE OF REACTION AFTER HANDLING LATEX PRODUCTS SUCH RUBBER GLOVES, CONDOMS, DIAPHRAGMS, BALLOONS, SOCKS, OR UNDERWEAR?NO LATEX ALLERGY : HAVE YOU EVER DEVELOPED ANY TYPE OF REACTION DURING OR AFTER DENTAL APPOINTMENT, VAGINAL/RECTAL EXAMINATION, SURGICAL PROCEDURE, OR ANY OTHER EXPOSURE?NO LATEX RISK : HAVE YOU EVER HAD ANY DIFFICULTY BREATHING OR HIVES AFTER EATING OR HANDLING ANY FRUITS, OR VEGETABLES; SUCH KIWI, BANANAS, STONE FRUITS, OR CHESTNUTSNO LATEX RISK : DO YOU HAVE A PREVIOUS PERSONAL HISTORY OF MORE THAN NINE SURGERIES, SPINA BIFIDA, OR REPEATED CATHERIZATIONS? NO LATEX RISK : ARE YOU FREQUENTLY EXPOSED TO LATEX PRODUCTS IN YOUR OCCUPATION?NO DATE ASKED : 11/26/2020 ALCOHOL USE: YES VERY RARELY. ALCOHOL SCREENING DID YOU HAVE A DRINK CONTAINING ALCOHOL IN THE PAST YEAR?YES HOW OFTEN DID YOU HAVE SIX OR MORE DRINKS ON ONE OCCASION IN THE PAST YEAR?NEVER (0 POINTS) HOW MANY DRINKS DID YOU HAVE ON A TYPICAL DAY WHEN YOU WERE DRINKING IN THE PAST YEAR?1 OR 2 (0 POINTS) HOW OFTEN DID YOU HAVE A DRINK CONTAINING ALCOHOL IN THE PAST YEAR?MONTHLY OR LESS (1 POINT) POINTS1 INTERPRETATIONNEGATIVE RECREATIONAL DRUG USE DRUG USE?NO CAFFEINE CAFFEINE USE?YES HOW OFTEN AND HOW MUCH? ENERGY DRINK ON OCCASSION SEXUAL HX HAD SEX IN THE LAST 12 MONTHS (VAGINAL, ORAL, OR ANAL)?NO HIV / HEP-C SCREENING HIV TEST OFFERED TO PATIENT:YES DATE OFFERED:08/06/2020 TEST ACCEPTED:NO HEP-C TEST OFFERED TO PATIENT:NO REASON:PATIENT DECLINED BROCHURE PROVIDED TO PATIENTYES ADVENTIST NO VOODOO BELIEFS THAT WOULD IMPACT HEALTH CARE. LANGUAGE OCCITAN. EDUCATION HIGHSCHOOL. LEARNING BARRIERS / SPECIAL NEEDS CHANGE FROM LAST VISIT?NO BARRIERS TO LEARNING?NO HEARING IMPAIRED?NO VISION IMPAIRED?YES :CORRECTIVE LENSES COGNITIVELY IMPAIRED?NO READINESS TO LEARN?YES LEARNING PREFERENCES?NO LEARNING CAPABILITIES PRESENT?YES EMOTIONAL BARRIERS?NO SPECIAL DEVICES?NO DIRECT SERVICE PROFESSIONAL NEEDED?NO DOMESTIC VIOLENCE NONE. OCCUPATION: UNEMPLOYED. DIET: REGULAR. EXERCISE: DAILY. MARITAL STATUS: SINGLE. OTHERS AT HOME: MOTHER, SIBLING. HOUSING: PARENTS HOME. REVIEW OF SYSTEMS CONSTITUTIONAL: ANY RECENT FEVER NO . CHILLS NO . WEIGHT CHANGE OF UNKNOWN REASONS NO . GASTROENTEROLOGY: NEW UNEXPLAINABLE CHANGES IN BOWEL CONTROL NO . CONSTIPATION NO . GENITOURINARY: ANY NEW CHANGE IN BLADDER CONTROL? NO . NEUROLOGY: NEW ONSET DIZZINESS OR NEUROLOGICAL CHANGES NOT MENTIONED NO . NEW NUMBNESS OR PAIN PATTERNS NOT MENTIONED AND PERTINENT TO TODAY'S VISIT NO . CARDIOLOGY: NEW CHEST PRESSURE NO . PATIENT DENIES NO . RESPIRATORY: UNEXPLAINABLE COUGH NO . NEW SHORTNESS OF BREATH NO . VITAL SIGNS WT 105 LBS, HT 69.5 IN, BMI 15.28 INDEX, BP 123/75 MM HG, HR 119 /MIN, RR 16 /MIN, TEMP 98.9 F, OXYGEN SAT % 96%, SAFE IN ENV? (Y/N) YES, NA INITIALS PA 14:58T.SARA STEPHENS. EXAMINATION GENERAL EXAMINATION: GENERALAWAKE,ALERT ,PLEASANT . PSYCHAFFECT NORMAL . LUNGS:LUNG SYED ARE CLEAR TO AUSCULTATION BILATERALLY. GOOD MOVEMENT OF AIR . HEART:S1, S2 IN A REGULAR RATE AND RHYTHM. NO SIGNIFICANT MURMURS, RUBS OR GALLOPS NOTED . ASSESSMENTS GENERALIZED ABDOMINAL PAIN - R10.84 (PRIMARY) TREATMENT GENERALIZED ABDOMINAL PAIN REFILL AMITRIPTYLINE HCL TABLET, 25 MG, 1 TABLET AT BEDTIME, ORALLY, ONCE A DAY, 30 DAY(S), 30, REFILLS 5 PROCEDURE CODES FA211 ESTABILISHED PATIENT [facility] CHARGE DISPOSITION & COMMUNICATION FOLLOW UP 4 MONTHS (REASON: MED MGMNT) ELECTRONICALLY SIGNED BY USHA ZAVALA ON 11/27/2020 AT 03:18 PM EDT DISCLAIMER : THIS IS A VISIT SUMMARY EXTRACTED FROM THE [employer] CHART. IT IS NOT A COPY OF THE [employer] PROGRESS NOTE. XU
== END ==
LOC: M PAIN 14:45
PROVIDERS: ATTEND Nurse Practitioner Family
DX: R10.84 Generalized abdominal pain (principal); J45.20 Mild intermittent asthma, uncomplicated; Z79.899 Other long term (current) drug therapy

== ENCOUNTER 2021-01-31 18:46 | Emergency (ER) | payer OTHER ==
[~2021-01-31] VITALS: Ht 175.3 cm; Wt 47.5 kg
[2021-02-01 00:16] LABS: HEMATOCRIT 40.7 % (42.0-52.0); HEMOGLOBIN 14.2 g/dl (13.5-17.5); MEAN CORPUSCULAR HEMOGLOBIN 31.5 pg (27.0-33.0); MEAN CORPUSCULAR HGB CONC 34.9 g/dl (32.0-36.5); MEAN CORPUSCULAR VOLUME 90.2 fl (80.0-96.0); PLATELET COUNT, AUTOMATED 197 10^3/uL (150-450); RED BLOOD COUNT 4.51 10^6/uL (4.30-6.10); WHITE BLOOD COUNT 8.4 10^3/uL (4.0-10.0)
[2021-02-01 00:45] LABS: AMPHETAMINES LEVEL URINE NEGATIVE (NEGATIVE); BARBITURATES URINE NEGATIVE (NEGATIVE); BENZODIAZEPINES URINE NEGATIVE (NEGATIVE); CANNABINOIDS URINE NEGATIVE (NEGATIVE); COCAINE METABOLITE URINE NEGATIVE (NEGATIVE); METHADONE URINE NEGATIVE (NEGATIVE); OPIATES URINE POSITIVE (NEGATIVE); PHENCYCLIDINE URINE NEGATIVE (NEGATIVE)
[2021-02-01 00:55] LABS: ACETAMINOPHEN LEVEL < 2.0 UG/ML (10.0-30.0); ALBUMIN 4.3 GM/DL (3.2-5.2); ALT/SGPT 34 U/L (12-78); BILIRUBIN,DIRECT 0.2 MG/DL (0.0-0.2); BILIRUBIN,TOTAL 2.5 MG/DL (0.2-1.0); BLOOD UREA NITROGEN 14 MG/DL (7-18); CALCIUM LEVEL 9.2 MG/DL (8.5-10.1); CARBON DIOXIDE LEVEL 24 MEQ/L (21-32); CHLORIDE LEVEL 108 MEQ/L (98-107); CREATININE FOR GFR 0.84 MG/DL (0.70-1.30); ETHYL ALCOHOL (ETHANOL) < 0.003 % (0.000-0.010); GLOMERULAR FILTRATION RATE > 60.0 (>60); GLUCOSE, FASTING 135 MG/DL (70-100); POTASSIUM SERUM 3.6 MEQ/L (3.5-5.1); SALICYLATE LEVEL < 1.7 MG/DL (5.0-30.0); SODIUM LEVEL 140 MEQ/L (136-145); THYROID STIMULATING HORMONE 0.463 uIU/ML (0.358-3.740); TOTAL PROTEIN 7.2 GM/DL (6.4-8.2)
[2021-02-01 03:12] LABS: RSV AMPLIFICATION NEGATIVE (NEGATIVE)
[2021-02-01 04:17] VITALS: BP 138/65
--- NOTE | 2021-02-03 16:34 | ECGEPIP ---
[facility] - ED Test Date: 2021-01-31 Pat Name: NYASIA SEGAL Department: Room: - Gender: Male Continuous Crusher Operator: BOWEN : 2000 Requested By: CRISTIAN Busch Order Number: [id number] Reading MD: Rasheeda Monahan Measurements Intervals [place] Rate: 82 P: 72 MT: 144 QRS: 91 QRSD: 92 T: 73 QT: 338 QTc: 394 Interpretive Statements Sinus rhythm with marked sinus arrhythmia Rightward axis increased rate 08/25/18 Electronically Signed on 02-03-2021 16:34:39 EDT by Rasheeda Monahan
== END 2021-02-01 04:18 | disposition short-term general hospital (02) ==
LOC: M ED 18:46
DX: R45.851 Suicidal ideations (principal); F32.9 Major depressive disorder, single episode, unspecified; J45.909 Unspecified asthma, uncomplicated; K21.9 Gastro-esophageal reflux disease without esophagitis; Z79.899 Other long term (current) drug therapy

== ENCOUNTER → 2021-09-03 | Outpatient (CLI) | payer OTHER ==
[~2021-09-03] MED LIST changes: -MONT10TA10 PO; +MONT10TA97 PO
[2021-09-03 13:24] LABS: BASO % 0.7 % (0.0-1.0); EOS # 0.1 10^3/uL (0.0-0.5); EOS % 1.4 % (0.0-3.0); HEMATOCRIT 37.1 % (42.0-52.0); HEMOGLOBIN 12.9 g/dl (13.5-17.5); LYMPH # 1.3 10^3/uL (1.5-5.0); LYMPH % 21.7 % (24.0-44.0); MEAN CORPUSCULAR HEMOGLOBIN 31.7 pg (27.0-33.0); MEAN CORPUSCULAR HGB CONC 34.8 g/dl (32.0-36.5); MEAN CORPUSCULAR VOLUME 91.2 fl (80.0-96.0); MONO # 0.4 10^3/uL (0.0-0.8); MONO % 6.6 % (2.0-8.0); NEUTROPHILS % 69.4 % (36.0-66.0); PLATELET COUNT, AUTOMATED 232 10^3/uL (150-450); RED BLOOD COUNT 4.07 10^6/uL (4.30-6.10); WHITE BLOOD COUNT 5.8 10^3/uL (4.0-10.0)
[2021-09-03 13:48] LABS: BLOOD UREA NITROGEN 10 MG/DL (7-18); C REACTIVE PROTEIN QUANTITATIV 0.36 MG/DL (0.00-0.30); CREATININE FOR GFR 0.77 MG/DL (0.70-1.30); GLOMERULAR FILTRATION RATE > 60.0 (>60)
[2021-09-03 13:50] LABS: ERYTHROCYTE SEDIMENTATION RATE 40 mm/hr (0-15)
== END ==
LOC: M LAB 12:31
PROVIDERS: ATTEND Nurse Practitioner Acute Care
DX: K50.90 Crohn's disease, unspecified, without complications (principal)

== ENCOUNTER 2022-09-10 11:25 | Inpatient (IN) | payer MEDICARE, OTHER, SELFPAY ==
[~2022-09-10] VITALS: Ht 175.3 cm; Wt 45.4 kg
[~2022-09-10 11:25] MED LIST changes: +NICOTINE 21MG/24HR 1 EA TRANSDERMAL TD SCH
[2022-09-10] MEDS ORDERED: GABA-282 (11:35)
[2022-09-10] MEDS ORDERED: PROP60CA (11:49)
[2022-09-10 12:44] LABS: HEMATOCRIT 43.7 % (42.0-52.0); HEMOGLOBIN 14.9 g/dl (13.5-17.5); MEAN CORPUSCULAR HEMOGLOBIN 31.6 pg (27.0-33.0); MEAN CORPUSCULAR HGB CONC 34.1 g/dl (32.0-36.5); MEAN CORPUSCULAR VOLUME 92.6 fl (80.0-96.0); PLATELET COUNT, AUTOMATED 244 10^3/uL (150-450); RED BLOOD COUNT 4.72 10^6/uL (4.30-6.10); WHITE BLOOD COUNT 7.9 10^3/uL (4.0-10.0)
[2022-09-10 13:03] LABS: BARBITURATES URINE NEGATIVE (NEGATIVE); COCAINE METABOLITE URINE NEGATIVE (NEGATIVE); METHADONE URINE NEGATIVE (NEGATIVE); PHENCYCLIDINE URINE NEGATIVE (NEGATIVE)
[2022-09-10 13:04] LABS: AMPHETAMINES LEVEL URINE NEGATIVE (NEGATIVE); BENZODIAZEPINES URINE NEGATIVE (NEGATIVE)
[2022-09-10 13:06] LABS: ETHYL ALCOHOL (ETHANOL) 0.004 % (0.000-0.010)
[2022-09-10 13:08] LABS: ALBUMIN 4.9 G/DL (3.2-5.2); ALKALINE PHOSPHATASE 78 U/L (46-116); ALT/SGPT 23 U/L (7.0-40); AST/SGOT 28 U/L (<34); BILIRUBIN,DIRECT 0.8 MG/DL (<0.4); BILIRUBIN,TOTAL 2.3 MG/DL (0.3-1.2); BLOOD UREA NITROGEN 12 MG/DL (9-23); CARBON DIOXIDE LEVEL 26 MMOL/L (20-31); CHLORIDE LEVEL 108 MMOL/L (98-107); CREATININE FOR GFR 0.93 MG/DL (0.70-1.30); GLOMERULAR FILTRATION RATE > 60.0 (>60); GLUCOSE, FASTING 76 MG/DL (60-100); POTASSIUM SERUM 4.2 MMOL/L (3.5-5.1); SALICYLATE LEVEL < 3.0 MG/DL (<30); SODIUM LEVEL 141 MMOL/L (136-145); TOTAL PROTEIN 7.9 G/DL (5.7-8.2)
[2022-09-10 13:10] LABS: THYROID STIMULATING HORMONE 1.607 uIU/ML (0.55-4.78)
[2022-09-10 13:12] LABS: ACETAMINOPHEN LEVEL 5.6 UG/ML (10.0-20.0); CANNABINOIDS URINE POSITIVE (NEGATIVE); OPIATES URINE POSITIVE (NEGATIVE)
[2022-09-10] MEDS ORDERED: MAALOX 30 ML SUSP *UDC PO PRN (13:35)
[2022-09-10] MEDS ORDERED: IBUPROFEN 400MG TAB PO PRN (13:35)
[2022-09-10] MEDS ORDERED: MOM 30ML SUSPENSION UDC PO PRN (13:35)
[2022-09-10] MEDS ORDERED: MED REC COMMENT (14:18)
[2022-09-10] MEDS ORDERED: HOME MED LIST COMPLETE! XX SCH (14:20)
[2022-09-10 17:15] VITALS: BP 119/67
[2022-09-10] MEDS: ACETAMINOPHEN TAB 650MG DOSE (2X325MG) PO PRN (17:40)
[2022-09-10] MEDS: traZODone 50 MG TAB PO PRN (21:52)
[2022-09-11 05:56] VITALS: BP 104/59
[2022-09-11 06:00] VITALS: BP 104/59
[2022-09-11] MEDS ORDERED: BUDESONIDE EC 3MG CAP (ENTOCORT EC) PO SCH (11:05)
[2022-09-11] MEDS: GABAPENTIN 300 MG CAP PO SCH ×3 (11:27→21:29)
[2022-09-11] MEDS: DULoxetine 20MG CAP (CYMBALTA) PO SCH (11:27)
[2022-09-11] MEDS: PROPRANOLOL 60MG LA CAP PO SCH (11:43)
[2022-09-11] MEDS: ACETAMINOPHEN TAB 650MG DOSE (2X325MG) PO PRN ×2 (13:35→21:53)
[2022-09-11] MEDS: MESALAMINE 250 MG CR CAP PO SCH ×2 (13:35→21:55)
[2022-09-11] MEDS ORDERED: ONDANSETRON 4MG ORAL DISINTEGRATING TAB SL PRN (13:50)
[2022-09-11 16:10] VITALS: BP 109/67
[2022-09-11] MEDS: traZODone 50 MG TAB PO PRN (21:53)
[2022-09-12] MEDS: MESALAMINE 250 MG CR CAP PO SCH ×3 (05:22→21:03)
[2022-09-12 06:15] VITALS: BP 118/62
[2022-09-12] MEDS: GABAPENTIN 300 MG CAP PO SCH ×3 (08:58→21:02)
[2022-09-12] MEDS: DULoxetine 20MG CAP (CYMBALTA) PO SCH (08:58)
[2022-09-12] MEDS: PROPRANOLOL 60MG LA CAP PO SCH (08:59)
[2022-09-12] MEDS: ACETAMINOPHEN TAB 650MG DOSE (2X325MG) PO PRN (14:45)
[2022-09-12 16:18] VITALS: BP 118/80
[2022-09-12] MEDS: traZODone 50 MG TAB PO PRN (23:29)
[2022-09-13] MEDS: MESALAMINE 250 MG CR CAP PO SCH ×3 (06:15→21:11)
[2022-09-13 06:45] VITALS: BP 105/70
[2022-09-13] MEDS: DULoxetine 20MG CAP (CYMBALTA) PO SCH (08:20)
[2022-09-13] MEDS: PROPRANOLOL 60MG LA CAP PO SCH (08:21)
[2022-09-13] MEDS: GABAPENTIN 300 MG CAP PO SCH ×3 (08:21→21:11)
[2022-09-13] MEDS: ACETAMINOPHEN TAB 650MG DOSE (2X325MG) PO PRN (08:21)
[2022-09-13 18:31] VITALS: BP 109/77
[2022-09-13] MEDS: traZODone 25MG PER 1/2 TABLET PO PRN (21:51)
[2022-09-14] MEDS: MESALAMINE 250 MG CR CAP PO SCH ×3 (05:14→21:35)
[2022-09-14 05:54] VITALS: BP 108/65
[2022-09-14] MEDS: GABAPENTIN 300 MG CAP PO SCH ×3 (08:20→21:36)
[2022-09-14] MEDS: DULoxetine 20MG CAP (CYMBALTA) PO SCH (08:20)
[2022-09-14 08:21] VITALS: BP 111/71
[2022-09-14] MEDS: PROPRANOLOL 60MG LA CAP PO SCH (08:22)
[2022-09-14] MEDS ORDERED: TRAZ-252 PO (12:10)
[2022-09-14] MEDS ORDERED: GABA-282 PO (12:10)
[2022-09-14] MEDS ORDERED: CYMB1CAP4 PO (12:10)
[2022-09-14] MEDS ORDERED: INDE60CA4 PO (12:10)
[2022-09-14 18:39] VITALS: BP 108/70
[2022-09-14] MEDS: traZODone 25MG PER 1/2 TABLET PO PRN (21:36)
[2022-09-15] MEDS: MESALAMINE 250 MG CR CAP PO SCH (05:36)
[2022-09-15] MEDS ORDERED: PENT500C PO (10:33)
[2022-09-15] MEDS: DULoxetine 20MG CAP (CYMBALTA) PO SCH (10:47)
[2022-09-15] MEDS: GABAPENTIN 300 MG CAP PO SCH (10:47)
[2022-09-15 10:48] VITALS: BP 106/75
[2022-09-15] MEDS: PROPRANOLOL 60MG LA CAP PO SCH (10:48)
== END 2022-09-15 12:10 | disposition home or self-care (01) | DRG 885 ==
LOC: M ED 11:25 → M ED INP 13:33 → M PSY 17:15
PROVIDERS: ADMIT Psychiatry & Neurology Psychiatry; ATTEND Student in an Organized Health Care Education/Training Program
DX: F32.89 Other specified depressive episodes (principal); E46 Unspecified protein-calorie malnutrition; Z68.1 Body mass index [BMI] 19.9 or less, adult; F12.90 Cannabis use, unspecified, uncomplicated; F11.90 Opioid use, unspecified, uncomplicated; F41.9 Anxiety disorder, unspecified; F63.81 Intermittent explosive disorder; Z91.128 Patient's intentional underdosing of medication regimen for other reason; R45.850 Homicidal ideations; Z79.899 Other long term (current) drug therapy; J45.20 Mild intermittent asthma, uncomplicated; K52.9 Noninfective gastroenteritis and colitis, unspecified

== ENCOUNTER 2022-10-23 21:59 | Emergency (ER) | payer MEDICARE, OTHER ==
[~2022-10-23] VITALS: Ht 175.3 cm; Wt 49.6 kg
[~2022-10-23 21:59] MED LIST changes: +CYMB1CAP4 PO; +GABA-282; +GABA-282 PO; +INDE60CA4 PO; +MED REC COMMENT; -NICOTINE 21MG/24HR 1 EA TRANSDERMAL TD SCH; +PENT500C PO; +PROP60CA; +TRAZ-252 PO
[2022-10-23] MEDS ORDERED: AMOX500C PO (22:08)
[2022-10-24 00:36] LABS: BASO % 0.9 % (0.0-1.0); EOS # 0.2 10^3/uL (0.0-0.5); EOS % 5.4 % (0.0-3.0); HEMATOCRIT 35.6 % (42.0-52.0); HEMOGLOBIN 12.1 g/dl (13.5-17.5); LYMPH # 1.6 10^3/uL (1.5-5.0); LYMPH % 35.7 % (24.0-44.0); MEAN CORPUSCULAR HEMOGLOBIN 32.3 pg (27.0-33.0); MEAN CORPUSCULAR VOLUME 94.9 fl (80.0-96.0); MONO # 0.9 10^3/uL (0.0-0.8); MONO % 21.1 % (2.0-8.0); NEUTROPHILS # 1.6 10^3/uL (1.5-8.5); NEUTROPHILS % 36.9 % (36.0-66.0); PLATELET COUNT, AUTOMATED 221 10^3/uL (150-450); RED BLOOD COUNT 3.75 10^6/uL (4.30-6.10); WHITE BLOOD COUNT 4.5 10^3/uL (4.0-10.0)
[2022-10-24 01:06] LABS: ALBUMIN 3.8 G/DL (3.2-5.2); BILIRUBIN,DIRECT 0.3 MG/DL (<0.4); BILIRUBIN,TOTAL 0.7 MG/DL (0.3-1.2); TOTAL PROTEIN 6.3 G/DL (5.7-8.2)
[2022-10-24] MEDS ORDERED: ISOVUE-370 76% 100ML VIAL As Ordered ONE (01:13)
[2022-10-24] MEDS ORDERED: NS 1,000 ML IV ONE (02:25)
[2022-10-24] MEDS ORDERED: ACETAMINOPHEN 500 MG TAB PO ONE (02:35)
[2022-10-24] MEDS ORDERED: KETOROLAC 30 MG/ML 1ML VIAL IV ONE (04:05)
[2022-10-24 05:07] VITALS: BP 113/69
[2022-10-24] MEDS ORDERED: PROP60CA PO (13:49)
[2022-10-24] MEDS ORDERED: MESA500C PO (13:49)
[2022-10-24] MEDS ORDERED: DULO-34 PO (13:49)
[2022-10-24] MEDS ORDERED: TRAZ-186 PO (13:49)
[2022-10-24] MEDS ORDERED: GABA-282 PO (13:49)
== END 2022-10-24 07:56 | disposition home or self-care (01) ==
LOC: M ED 21:59
DX: A08.0 Rotaviral enteritis (principal); K21.9 Gastro-esophageal reflux disease without esophagitis; F12.10 Cannabis abuse, uncomplicated; F43.0 Acute stress reaction; J45.909 Unspecified asthma, uncomplicated; K50.90 Crohn's disease, unspecified, without complications; Z79.2 Long term (current) use of antibiotics; Z79.891 Long term (current) use of opiate analgesic; Z79.899 Other long term (current) drug therapy
CPT/HCPCS: 74177; 80047; 80048; 80076; 80143; 80307; 81001; 82077; 83690; 84443; 85025; 85027; 87507; 87635; 93041; 96361; 96374; 99284; J1885; Q9967

== ENCOUNTER 2022-10-24 11:13 | Emergency (ER) | payer MEDICARE, OTHER ==
[~2022-10-24 11:13] MED LIST changes: +AMOX500C PO
[2022-10-24 11:31] VITALS: BP 118/67
[2022-10-24 12:11] LABS: HEMATOCRIT 36.1 % (42.0-52.0); HEMOGLOBIN 12.3 g/dl (13.5-17.5); MEAN CORPUSCULAR HEMOGLOBIN 32.2 pg (27.0-33.0); MEAN CORPUSCULAR HGB CONC 34.1 g/dl (32.0-36.5); MEAN CORPUSCULAR VOLUME 94.5 fl (80.0-96.0); PLATELET COUNT, AUTOMATED 204 10^3/uL (150-450); RED BLOOD COUNT 3.82 10^6/uL (4.30-6.10); WHITE BLOOD COUNT 4.9 10^3/uL (4.0-10.0)
[2022-10-24 12:36] LABS: AMPHETAMINES LEVEL URINE NEGATIVE (NEGATIVE); BARBITURATES URINE NEGATIVE (NEGATIVE); BENZODIAZEPINES URINE NEGATIVE (NEGATIVE); COCAINE METABOLITE URINE NEGATIVE (NEGATIVE); METHADONE URINE NEGATIVE (NEGATIVE); OPIATES URINE NEGATIVE (NEGATIVE); PHENCYCLIDINE URINE NEGATIVE (NEGATIVE)
[2022-10-24 12:38] LABS: ETHYL ALCOHOL (ETHANOL) < 0.003 % (0.000-0.010)
[2022-10-24 12:39] LABS: ACETAMINOPHEN LEVEL < 2.0 UG/ML (10.0-20.0)
[2022-10-24 12:40] LABS: SALICYLATE LEVEL < 3.0 MG/DL (<30)
[2022-10-24 12:54] LABS: ALBUMIN 3.8 G/DL (3.2-5.2); ALKALINE PHOSPHATASE 80 U/L (46-116); ALT/SGPT 35 U/L (7.0-40); AST/SGOT 17 U/L (<34); BILIRUBIN,DIRECT 0.5 MG/DL (<0.4); BILIRUBIN,TOTAL 1.1 MG/DL (0.3-1.2); BLOOD UREA NITROGEN 9 MG/DL (9-23); CALCIUM LEVEL 8.3 MG/DL (8.5-10.1); CANNABINOIDS URINE POSITIVE (NEGATIVE); CARBON DIOXIDE LEVEL 26 MMOL/L (20-31); CHLORIDE LEVEL 108 MMOL/L (98-107); CREATININE FOR GFR 0.72 MG/DL (0.70-1.30); GLOMERULAR FILTRATION RATE > 60.0 (>60); GLUCOSE, FASTING 94 MG/DL (60-100); POTASSIUM SERUM 3.5 MMOL/L (3.5-5.1); SODIUM LEVEL 141 MMOL/L (136-145); TOTAL PROTEIN 6.2 G/DL (5.7-8.2)
[2022-10-24] MEDS ORDERED: PROP60CA PO (13:49)
[2022-10-24] MEDS ORDERED: MESA500C PO (13:49)
[2022-10-24] MEDS ORDERED: DULO-34 PO (13:49)
[2022-10-24] MEDS ORDERED: GABA-282 PO (13:49)
[2022-10-24] MEDS ORDERED: TRAZ-186 PO (13:49)
[2022-10-24] MEDS ORDERED: HOME MED LIST COMPLETE! XX SCH (13:50)
== END 2022-10-24 17:45 | disposition home or self-care (01) ==
LOC: M ED 11:13
DX: F43.0 Acute stress reaction (principal); J45.909 Unspecified asthma, uncomplicated; K50.90 Crohn's disease, unspecified, without complications

== ENCOUNTER 2022-10-28 15:05 | Emergency (ER) | payer MEDICARE, OTHER ==
[~2022-10-28] VITALS: Ht 175.3 cm; Wt 48.1 kg
[~2022-10-28 15:05] MED LIST changes: +DULO-34 PO; +MESA500C PO; +PROP60CA PO; +TRAZ-186 PO
[2022-10-28 15:06] VITALS: BP 113/73
[2022-10-28 16:10] LABS: HEMOGLOBIN 12.8 g/dl (13.5-17.5); MEAN CORPUSCULAR HEMOGLOBIN 32.1 pg (27.0-33.0); MEAN CORPUSCULAR HGB CONC 33.7 g/dl (32.0-36.5); MEAN CORPUSCULAR VOLUME 95.2 fl (80.0-96.0); PLATELET COUNT, AUTOMATED 262 10^3/uL (150-450); RED BLOOD COUNT 3.99 10^6/uL (4.30-6.10)
[2022-10-28 16:29] LABS: AMPHETAMINES LEVEL URINE NEGATIVE (NEGATIVE); BARBITURATES URINE NEGATIVE (NEGATIVE); BENZODIAZEPINES URINE NEGATIVE (NEGATIVE); COCAINE METABOLITE URINE NEGATIVE (NEGATIVE); METHADONE URINE NEGATIVE (NEGATIVE); OPIATES URINE NEGATIVE (NEGATIVE); PHENCYCLIDINE URINE NEGATIVE (NEGATIVE)
[2022-10-28 16:32] LABS: CANNABINOIDS URINE POSITIVE (NEGATIVE); ETHYL ALCOHOL (ETHANOL) < 0.003 % (0.000-0.010)
[2022-10-28 16:33] LABS: SALICYLATE LEVEL < 3.0 MG/DL (<30)
[2022-10-28 16:34] LABS: ACETAMINOPHEN LEVEL 3.6 UG/ML (10.0-20.0); ALBUMIN 3.9 G/DL (3.2-5.2); ALKALINE PHOSPHATASE 80 U/L (46-116); ALT/SGPT 33 U/L (7.0-40); AST/SGOT 18 U/L (<34); BILIRUBIN,DIRECT 0.3 MG/DL (<0.4); BILIRUBIN,TOTAL 0.7 MG/DL (0.3-1.2); BLOOD UREA NITROGEN 10 MG/DL (9-23); CALCIUM LEVEL 8.4 MG/DL (8.5-10.1); CARBON DIOXIDE LEVEL 31 MMOL/L (20-31); CHLORIDE LEVEL 104 MMOL/L (98-107); GLOMERULAR FILTRATION RATE > 60.0 (>60); GLUCOSE, FASTING 113 MG/DL (60-100); POTASSIUM SERUM 3.9 MMOL/L (3.5-5.1); SODIUM LEVEL 140 MMOL/L (136-145); TOTAL PROTEIN 6.5 G/DL (5.7-8.2)
[2022-10-28 16:35] LABS: THYROID STIMULATING HORMONE 1.595 uIU/ML (0.55-4.78)
[2022-10-28] MEDS ORDERED: HOME MED LIST COMPLETE! XX SCH (18:00)
== END 2022-10-28 22:32 | disposition home or self-care (01) ==
LOC: M ED 15:05
DX: F43.0 Acute stress reaction (principal); R45.851 Suicidal ideations; F32.A Depression, unspecified; Z59.00 Homelessness unspecified; K50.90 Crohn's disease, unspecified, without complications; F12.10 Cannabis abuse, uncomplicated; Z79.891 Long term (current) use of opiate analgesic; Z79.899 Other long term (current) drug therapy